=== PATIENT | female | born 1955 | race Caucasian/White ===

== ENCOUNTER 2022-11-24 11:09 | Emergency (ER) | payer MEDICARE, SELFPAY ==
[2022-11-24 11:13] VITALS: BP 142/77; PULSE 71; RESP 18; TEMP 36.7; O2SAT 95; BMI 38.0
--- NOTE | 2022-11-24 11:22 | CTR_ITS ---
PROCEDURE INFORMATION: Exam: CT Chest Without Contrast; Diagnostic Exam date and time: 11/24/2022 11:59 AM Age: 66 years old Clinical indication: Injury or trauma; Fall; Blunt trauma (contusions or hematomas) TECHNIQUE: Imaging protocol: Diagnostic computed tomography of the chest without contrast. Radiation optimization: All CT scans at this facility use at least one of these dose optimization techniques: automated exposure control; mA and/or kV adjustment per patient size (includes targeted exams where dose is matched to clinical indication); or iterative reconstruction. REPORTING DATA: Count of CT and Cardiac NM exams in prior 12 months: This patient has received 0 known CTs and 0 known cardiac nuclear medicine studies in the 12 months prior to the current study. COMPARISON: CR XR chest 1V [id number] 11/04/2016 12:24 PM RADIATION DOSE METRICS: Total DLP (mGy-cm): 561.22 FINDINGS: Tubes, catheters and devices: There is a dual-lead AICD with leads positioned in the right atrium and right ventricle. Lungs: There is no consolidation. There is a noncalcified pulmonary nodule in the right middle lobe visible on There is a noncalcified pulmonary nodule in the lingula visible on series 5, image 33 measuring 3 mm. Similar tiny noncalcified nodules are seen in the lung apices. There is no consolidation. Pleural spaces: There is no pleural effusion or pneumothorax. Heart: Heart size is normal. There is no pericardial effusion. Coronary arteries: There is mild coronary artery calcification. Lymph nodes: There is no mediastinal or hilar lymphadenopathy. Vasculature: There is mild aortic atherosclerotic disease. Diaphragm: There is a small sliding-type hiatal hernia. Kidneys and ureters: Right nephrectomy noted. Visible portion of the left kidney is unremarkable. Bones/joints: There are acute nondisplaced fractures of the right posterolateral 4th through 6th ribs. There are acute anterolateral fractures of the right 5th through 7th ribs. No acute rib fractures on the left. There are healed left posterolateral 6th through 8th rib fractures. The visible portions of the clavicles, shoulders, scapulae, sternum and spine are intact. Soft tissues: The extrathoracic soft tissues are unremarkable. CT/CT chest wo con [id number] IMPRESSION: 1. Acute nondisplaced fractures of the right posterolateral 4th through 6th and anterolateral right 5th through 7th ribs (5th and 6th ribs are fractured at 2 sites). 2. No sign of significant intrathoracic injury. No pneumothorax, pleural effusion or pulmonary contusion. 3. Noncalcified bilateral pulmonary nodules measuring up to 3 mm. For patients at low risk (minimal or absent history of smoking and of other known risk factors), no routine follow-up is indicated. For patients at high risk (history of smoking or of other known risk factors), consider optional CT Chest at 12 months. (Reference: Jose) 4. Incidental findings above. REFERENCES: Jose Bernard, et al. Guidelines for Management of Incidental Pulmonary Nodules Detected on CT Images: From the Fleischner Society 2017. Radiology. 2017;284(1):228-243.
--- NOTE | 2022-11-24 11:24 | ED_ITS ---
HPI - Fall General: Chief Complaint: Fall Stated Complaint: fell on RT side Time Seen by Provider: 11/24/22 11:19 History of Present Illness: 66-year-old female presents emergency room via private car after sustaining a fall about 30 minutes ago. Patient further reveals that she fell while trying to call and landed on her right side. She described the pain as aching sensation with severity of 9 out of 10 mostly along the right ribs. Creased pain with deep breathing and movement. Patient has any head injury, loss of consciousness, neck pain, chest pain, nausea or vomiting. No other injury at this time. Associated symptoms-after fall: Denies confusion, difficulty walking, headache(s) or vertigo Review of Systems General: Reports: 10 or more systems reviewed and unremarkable except in HPI and below Resp: Denies: dyspnea, productive cough, non-productive cough, wheezing, stridor, pain on inspiration, change in phlegm color, hemoptysis or chest congestion Musc: Reports: other (Right-sided rib cage pain); Denies: limited range of motion, decrease in muscle mass or deformity Neuro: Denies: headache(s), numbness in extremities, weakness in extremities, sensory changes, lack of coordination, difficulty walking, frequent falls, dizziness, vertigo, confusion, behavioral changes, Slurred speech present or difficulty communicating thoughts Physical Exam Const: COMMON NORMALS: no acute distress, average body habitus, patient oriented x3, no limitations, healthy appearing, alert and well nourished HENMT: COMMON NORMALS: normocephalic, atraumatic, hearing grossly normal bilaterally, external ears normal, EAC's normal, TM's normal bilaterally, Normal external nose present, Normal nasal mucous membranes and turbinates present, moist oral mucous membranes, oropharynx normal, dentition normal and gingiva normal HEAD & SCALP: normocephalic and atraumatic NOSE: Normal external nose present and Normal nasal mucous membranes and turbinates present EXTERNAL EAR: Yes external ears normal EXTERNAL AUDITORY CANAL: EAC's normal TYMPANIC MEMBRANE: TM's normal bilaterally Eye: COMMON NORMALS: Equal, round and reactive pupils present, EOMs intact bilaterally, conjunctivae normal, no scleral icterus, no papilledema, normal visual mota by confrontation and fundi normal bilaterally CONJUNCTIVA: Yes conjunctivae normal PUPIL: Yes Equal, round and reactive pupils present DIRECT OPHTHALMOSCOPY: Yes no papilledema and Yes fundi normal bilaterally Neck/C-Spine: COMMON NORMALS: no JVD Chest: CHEST: No abnormal inspection of the chest, Yes Symmetrical chest wall rise, No crepitus, Yes localized rib tenderness with anteroposterior compression, No Sternal flail present, No mass, No sinus tracts, Yes tenderness, No laceration, No abrasion, No Ecchymosis present and No wounds Resp: COMMON NORMALS: normal respiratory effort, No retractions, No use of accessory muscles, clear to auscultation bilaterally and percussion normal AUSCULTATION: clear to auscultation bilaterally PERCUSSION: percussion normal Cardio: COMMON NORMALS: no JVD, regular rate, regular rhythm, S1 normal heart sound present and S2 normal heart sound present RATE: regular rate RHYTHM: regular rhythm HEART SOUNDS: S1 normal heart sound present and S2 normal heart sound present Extremity: COMMON NORMALS: normal to inspection, full ROM, capillary refill normal, no joint enlargement and no clubbing, cyanosis or edema Neuro: COMMON NORMALS: patient oriented x3 SENSORIUM/ORIENTATION: Yes alert Course ED course: Discussed CT findings with the patient. Patient was given pain medication she was told to return to emergency room if her symptoms persist or worsen for the past few days. Reevaluation(s): Reevaluation #1: Patient reveals decreased pain with current treatment Vital Signs: Vital signs: Vital Signs Temperature 98.0 F 11/24/22 11:13 Pulse Rate 71 11/24/22 11:13 Respiratory Rate 18 11/24/22 11:13 Blood Pressure 142/77 11/24/22 11:13 Pulse Oximetry 95 11/24/22 11:13 Oxygen Delivery Me thod Room Air 11/24/22 11:13 MDM - Fall Medical Decision Making Patient was medical for the emergency room. During the examination discussed care plan with patient. Patient had a CT scan. I reviewed the CAT scan result with the patient. She was given pain medication and made comfortable. Differential Diagnosis Likely syncope, dislocation of shoulder region, compression fracture and concussion with loss of consciousness (Rib contusion, rib fracture, lung contusion pneumothorax) Lab Data I reviewed the patient's lab results. Radiology Impressions Chest CT 11/24/22 11:22 IMPRESSION: 1. Acute nondisplaced fractures of the right posterolateral 4th through 6th and anterolateral right 5th through 7th ribs (5th and 6th ribs are fractured at 2 sites). 2. No sign of significant intrathoracic injury. No pneumothorax, pleural effusion or pulmonary contusion. 3. Noncalcified bilateral pulmonary nodules measuring up to 3 mm. For patients at low risk (minimal or absent history of smoking and of other known risk factors), no routine follow-up is indicated. For patients at high risk (history of smoking or of other known risk factors), consider optional CT Chest at 12 months. (Reference: Jose) 4. Incidental findings above. REFERENCES: Jose Bernard, et al. Guidelines for Management of Incidental Pulmonary Nodules Detected on CT Images: From the Fleischner Society 2017. Radiology. 2017;284(1):228-243. Discharge Plan Discharge Patient Disposition: Home Clinical Impression: Fall, Contusion of rib, Closed rib fracture Condition: Stable Prescriptions: New Ultram 50 mg 1 tab PO 2XD PRN (Reason: farrell) Qty: 20 0RF promethazine 12.5 mg tablet 12.5 mg PO Q6H PRN (Reason: nausea) Qty: 20 0RF Rx Instructions: 3 doses during day; last dose no later than 4 hr before bedtime oxycodone 5 mg capsule 5 mg PO Q8H PRN (Reason: pain) Qty: 20 0RF Discharge Orders: Discharge ED (Routine); Ordered 11/24/22 Ordered By: Danny Platt Referrals: Stef Christina DO [Primary Care Provider] - Discharge Diet: Advance as tolerated Discharge Activity: Resume usual activity Patient Instructions: Opioid Safety, Pain Management Coding Level of Care 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
[2022-11-24] MEDS: ketorolac 30 mg/mL INJ IM (12:57)
[2022-11-24] MEDS: ondansetron 4 MG Tablet 8 MG PO (12:57)
== END 2022-11-24 13:43 | disposition home or self-care (01) ==
PROVIDERS: Emergency Provider Family Medicine; PCP Internal Medicine
DX: S20.211A Contusion of right front wall of thorax, initial encounter (principal); S22.41XA Multiple fractures of ribs, right side, initial encounter for closed fracture; W19.XXXA Unspecified fall, initial encounter
CPT/HCPCS: 71250; 96372; 99284; J1885; Q0162

== ENCOUNTER 2022-11-29 15:31 | Emergency (ER) | payer MEDICARE, SELFPAY ==
[2022-11-29 15:41] VITALS: BP 146/83; PULSE 93; RESP 18; TEMP 36.6; O2SAT 93; BMI 36.3
--- NOTE | 2022-11-29 16:21 | XRR_ITS ---
PROCEDURE INFORMATION: Exam: XR Chest Exam date and time: 11/29/2022 4:31 PM Age: 66 years old Clinical indication: Cough and dyspnea; Additional info: Dyspnea/cough TECHNIQUE: Imaging protocol: Radiologic exam of the chest. Views: 1 view. COMPARISON: CT chest con [id number] 11/24/2022 11:59 AM FINDINGS: Tubes, catheters and devices: Cardiac device left anterior chest in good position Lungs: Unremarkable. No consolidation. Pleural spaces: Unremarkable. No pleural effusion. No pneumothorax. Heart/Mediastinum: Unremarkable. No cardiomegaly. Bones/joints: Unremarkable. XR/XR chest 1V portable [id number] IMPRESSION: 1. No acute findings. 2. Cardiac device left anterior chest in good position
--- NOTE | 2022-11-29 16:33 | W.ED.FALL ---
HPI - Fall General: Chief Complaint: Fall Stated Complaint: fall, ribs broken Time Seen by Provider: 11/29/22 16:21 Source: patient Mode of arrival: ambulatory History of Present Illness: 66-year-old female presents emergency room complaining of rib pain. She fell 5 days ago was seen in the emergency room CT showed multiple rib fractures she was given pain medication she still having pain in the ribs with deep breaths. She is reporting some productive cough no hemoptysis she has noted its painful to breathe at times it makes her feel short of breath. She has not had any recurrent injury. MD complaint: fall Fall from: chair Place fall occurred: home Loss of consciousness: None Prolonged down time: no Symptoms prior to fall: none Associated symptoms-after fall: Reports short of breath; Denies abdominal pain, chest pain, confusion, difficulty walking, headache(s), hematuria, lightheadedness, neck pain, numbness, vertigo or weakness Review of Systems Const: Denies: fever(s), chills, fatigue or malaise ENMT: Denies: throat pain Card: Denies: chest pain, edema, lightheadedness, dyspnea on exertion or orthopnea Resp: Reports: dyspnea, productive cough and pain on inspiration; Denies: non-productive cough GI: Denies: abdominal pain, nausea or vomiting : Denies: flank pain, difficulty voiding, dysuria, urinary frequency, urinary urgency or hematuria Musc: Denies: neck pain Skin/Breast: Denies: rash or pruritus Neuro: Denies: headache(s), difficulty walking, vertigo or confusion PFS ED PFSH: Medical History Closed rib fracture History of pacemaker Physical Exam Const: GENERAL APPEARANCE: cooperative and comfortable ORIENTATION/CONSCIOUSNESS: Yes awake, Yes oriented to person, Yes oriented to place and Yes oriented to time HENMT: COMMON NORMALS: normocephalic, atraumatic and hearing grossly normal bilaterally HEAD & SCALP: normocephalic and atraumatic Resp: COMMON NORMALS: normal respiratory effort, No retractions, No use of accessory muscles and clear to auscultation bilaterally AUSCULTATION: clear to auscultation bilaterally Cardio: COMMON NORMALS: regular rate, regular rhythm and No murmurs present (Cardio) RATE: regular rate RHYTHM: regular rhythm GI: COMMON NORMALS: Soft to palpation and No hepatosplenomegaly present AUSCULTATION: Yes normoactive bowel sounds PALPATION: Yes Soft to palpation, No Tenderness to palpation present (GI), No Guarding due to palpation present (GI) and Yes No hepatosplenomegaly present Extremity: COMMON NORMALS: normal to inspection, capillary refill normal, no clubbing, cyanosis or edema, no calf tenderness and no pedal edema Neuro: SENSORIUM/ORIENTATION: Yes oriented to person, Yes oriented to place and Yes oriented to time Skin: COMMON NORMALS: no rashes or lesions noted GENERAL SKIN EXAM: no rashes or lesions noted Course Vital Signs: Vital signs: Vital Signs Temperature 97.8 F 11/29/22 15:41 Pulse Rate 71 11/29/22 17:08 Respiratory Rate 18 11/29/22 17:07 Blood Pressure 159/94 11/29/22 17:08 Pulse Oximetry 94 11/29/22 17:08 Oxygen Delivery Me thod Room Air 11/29/22 17:08 MDM - Fall Medical Decision Making Labs and imaging reviewed with the patient no pneumothorax no hemothorax no pneumonia. Will increase her pain medications give her hydrocodone 7.5 325 also gave her promethazine because she has nausea with use of narcotics in the past follow-up with her primary care doctor return if she has further problems Medical Records I reviewed the patient's medical records. Lab Data I reviewed the patient's lab results. 11/29/22 16:37 11/29/22 16:37 Radiology Impressions Chest X-Ray 11/29/22 16:21 IMPRESSION: 1. No acute findings. 2. Cardiac device left anterior chest in good position Laboratory Results WBC 11.4 10^3/uL (4.0-10.0) H 11/29/22 16:37 RBC 5.40 10^6/uL (4.1-5.3) H 11/29/22 16:37 Hgb 15.5 g/dL (11.5-15.3) H 11/29/22 16:37 Hct 47.5 % (37.0-47.0) H 11/29/22 16:37 MCV 88.0 fl (81-99) 11/29/22 16:37 MCH 28.7 pg (28.0-34.0) 11/29/22 16:37 MCHC 32.6 g/dL (30.0-36.0) 11/29/22 16:37 RDW 13.0 % (12.1-15.1) 11/29/22 16:37 Plt Count 194 10^3/cmm (130-400) 11/29/22 16:37 MPV 11.1 fL (7.4-10.4) H 11/29/22 16:37 Neut % (Auto) 76.9 % 11/29/22 16:37 Lymph % (Auto) 13.6 % 11/29/22 16:37 [place] % (Auto) 8.9 % 11/29/22 16:37 Eos % (Auto) 0.0 % 11/29/22 16:37 Baso % (Auto) 0.3 % 11/29/22 16:37 Neut # (Auto) 8.77 10^3/uL (1.8-7.7) H 11/29/22 16:37 Lymph # (Auto) 1.6 10^3/uL (0.8-4.8) 11/29/22 16:37 [place] # (Auto) 1.0 10^3/uL (0.2-0.9) H 11/29/22 16:37 Eos # (Auto) 0.0 10^3/uL (0.0-0.8) 11/29/22 16:37 Baso # (Auto) 0.0 10^3/uL (0.0-0.1) 11/29/22 16:37 Nucleated RBC % (auto) 0 % 11/29/22 16:37 Nucleated RBCs # 0.0 /100WBC 11/29/22 16:37 Sodium 135 mmol/L (136-145) L 11/29/22 16:37 Potassium 3.9 mmol/L (3.5-5.1) 11/29/22 16:37 Chloride 98 mmol/L (98-107) 11/29/22 16:37 Carbon Dioxide 25 mmol/L (22-29) 11/29/22 16:37 Anion Gap 15.9 (5-19) 11/29/22 16:37 BUN 13 mg/dL (8-23) 11/29/22 16:37 Creatinine 1.1 mg/dL (0.5-0.9) H 11/29/22 16:37 GFR Calculation 49.7 mL/min (90-130) L 11/29/22 16:37 Glucose 111 mg/dL (65-115) 11/29/22 16:37 Calculated Osmolality 281 mOsm/kg (285-295) L 11/29/22 16:37 Calcium 9.0 mg/dL (8.5-10.5) 11/29/22 16:37 Discharge Plan Discharge Patient Disposition: Home Clinical Impression: Closed rib fracture Condition: Stable Prescriptions: New hydrocodone-acetaminophen 7.5-325 mg tablet 1 tab PO Q6H PRN (Reason: pain) Qty: 20 0RF promethazine 25 mg tablet 12.5 mg PO Q6H PRN (Reason: nausea and vomiting) Qty: 15 0RF Discontinued oxycodone 5 mg capsule 5 mg PO Q8H PRN (Reason: pain) Qty: 20 0RF No Action Ultram 50 mg 1 tab PO 2XD PRN (Reason: farrell) Qty: 20 0RF promethazine 12.5 mg tablet 12.5 mg PO Q6H PRN (Reason: nausea) Qty: 20 0RF Rx Instructions: 3 doses during day; last dose no later than 4 hr before bedtime Discharge Orders: Discharge ED (Routine); Ordered 11/29/22 Ordered By: Jean Laws Referrals: Tad Magdaleno MD [Primary Care Provider] - Discharge Diet: Usual diet Discharge Activity: Increase activity as tolerated Patient Instructions: Opioid Safety, Pain Management, Fractures - Rib Coding Level of Care 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
[2022-11-29 16:49] LABS: Basophils % 0.3 %; Hematocrit 47.5 % (37.0-47.0); Hemoglobin 15.5 g/dL (11.5-15.3); Lymphocytes # 1.6 10^3/uL (0.8-4.8); Lymphocytes % 13.6 %; Mean Corpuscular HGB Conc 32.6 g/dL (30.0-36.0); Mean Corpuscular Hemoglobin 28.7 pg (28.0-34.0); Mean Platelet Volume 11.1 fL (7.4-10.4); Monocytes % 8.9 %; Neutrophils # 8.77 10^3/uL (1.8-7.7); Neutrophils % 76.9 %; Nucleated Red Blood Cells % 0 %; Platelet Count 194 10^3/cmm (130-400); White Blood Count 11.4 10^3/uL (4.0-10.0)
[2022-11-29 17:07] VITALS: RESP 18
[2022-11-29] MEDS: oxyCODONE-APAP 5-325 mg Tablet 1 TAB PO (17:07)
[2022-11-29 17:08] VITALS: BP 159/94; PULSE 71; O2SAT 94
[2022-11-29 17:09] LABS: Anion Gap 15.9 (5-19); Blood Urea Nitrogen 13 mg/dL (8-23); Carbon Dioxide 25 mmol/L (22-29); Chloride 98 mmol/L (98-107); Glomerular Filtration Rate 49.7 mL/min (90-130); Glucose 111 mg/dL (65-115); Osmolality Calculated 281 mOsm/kg (285-295); Potassium 3.9 mmol/L (3.5-5.1); Sodium 135 mmol/L (136-145)
[2022-11-29 17:35] VITALS: PULSE 75; O2SAT 97
== END 2022-11-29 17:36 | disposition home or self-care (01) ==
PROVIDERS: Emergency Provider Family Medicine; PCP Family Medicine
DX: S22.41XA Multiple fractures of ribs, right side, initial encounter for closed fracture (principal); W19.XXXA Unspecified fall, initial encounter; Y92.009 Unspecified place in unspecified non-institutional (private) residence as the place of occurrence of the external cause
CPT/HCPCS: 36415; 71045; 80048; 85025; 99284

== ENCOUNTER → 2023-01-08 14:46 | Outpatient (BNVA) | payer MEDICARE, SELFPAY | PROVIDERS: PCP Family Medicine; Visit Provider Internal Medicine Cardiovascular Disease | DX: I21.9 Acute myocardial infarction, unspecified (principal); E78.5 Hyperlipidemia, unspecified; Z95.0 Presence of cardiac pacemaker; E66.9 Obesity, unspecified; N18.9 Chronic kidney disease, unspecified; I27.20 Pulmonary hypertension, unspecified; Z68.37 Body mass index [BMI] 37.0-37.9, adult | CPT/HCPCS: 93005; 99204 ==

== ENCOUNTER 2023-03-03 13:48 | Outpatient (CLI) | payer MEDICARE, SELFPAY ==
--- NOTE | 2023-03-03 13:57 | MM_ITS ---
WS: [id number] BILATERAL 3D TOMOSYNTHESIS DIGITAL SCREENING MAMMOGRAPHY WITH CAD CLINICAL INFORMATION: SCREENING HISTORY: Screening mammogram. No current complaints. COMPARISON: 2016 TECHNIQUE: Bilateral CC and MLO views. FINDINGS: Scattered fibroglandular densities bilaterally. Stable 5 mm ovoid nodule or intramammary lymph node u pper outer RIGHT breast. No suspicious focal mass, asymmetry, calcifications, or architectural distor tion. No evidence of malignancy. A few incidental punctate calcifications. IMPRESSION: MM/[place] [id number] BI-RADS: 2-Benign FOLLOW UP: 1 Year Follow-up Recommend return to annual screening mammography.
== END 2023-03-03 13:49 | disposition home or self-care (01) ==
PROVIDERS: PCP Family Medicine; Visit Provider Family Medicine
DX: Z12.31 Encounter for screening mammogram for malignant neoplasm of breast (principal)
CPT/HCPCS: 77063; 77067

== ENCOUNTER 2023-05-14 07:52 | Outpatient (CLI) | payer MEDICARE, SELFPAY ==
--- NOTE | 2023-05-14 | US_ITS ---
WS: [id number] RENAL ULTRASOUND HISTORY: CKD STAGE 2, H/O NEPHRECTOMY COMPARISON: None available. TECHNIQUE: 2-D and color Doppler imaging of the kidney submitted. Right kidney: Prior RIGHT nephrectomy. No mass in the renal bed. Left kidney: 10.7 cm x 4.6 cm x 4.6 cm. Cortex: 1.2 cm Normal size kidney. There is mild cortical thinning in the upper pole renal cortex. No mass. No hydro nephrosis. Aorta: Normal. Urinary Bladder: Minimally distended. IMPRESSION: 1. Status post RIGHT nephrectomy. 2. Mild cortical thinning upper pole LEFT kidney. Otherwise negative.
== END 2023-05-14 07:53 | disposition home or self-care (01) ==
LOC: RAD 07:52
PROVIDERS: Visit Provider Internal Medicine Nephrology
DX: N18.2 Chronic kidney disease, stage 2 (mild) (principal); Z90.5 Acquired absence of kidney
CPT/HCPCS: 76770